=== PATIENT | male | born 1960 | race Caucasian/White ===

== ENCOUNTER 2024-09-23 23:52 | Inpatient (IN) | payer OTHER, SELFPAY ==
[2024-09-23] VITALS (14 sets, daily range): BP systolic 95–143; BP diastolic 61–107; BMI 24.8
--- NOTE | 2024-09-23 20:55 | ED.GENMED ---
History of Present Illness
General
Chief Complaint: DVT/Possible Blood Clot
Time Seen by Provider: 09/23/24 20:17
History of Present Illness
History of Present Illness:
Patient presents to the emergency department with left leg pain. He has a history of vascular disease with coronary artery disease with 2 stents as well as peripheral arterial disease with a left iliac stent in the past. He states he was sitting
outside in his yard and when he went to stand up he felt a severe pain in the left calf. He states it felt like a cramp but was more severe and felt slightly different. Pain is better at this time. Denies numbness or tingling or weakness in the
leg
Past History
Past History
ED Past Medical History: CAD, CVA, HTN, Hypercholesterolemia and Other (Headaches)
ED Past Surgical History: Cardiac (AICD, stents X 2) and Other (Stent Left leg)
Social History
Tobacco: Smoker
Alcohol: Daily (Casey hard lemonade 1)
Personal:
Living: with family
Phy Exam
Physical Exam
Physical Exam:
General: No acute distress
Head: NCAT
Neck, Normal in appearance, no swelling
Respiratory: No Respiratory distress
Abdomen: No distension
Ext: The legs are normal in color. The left is slightly cooler than the right. There are no palpable pulses in the left foot. There are palpable pulses throughout the right lower extremity. There is a dopplerable posterior tibial pulse on the
left. Motor and sensation is intact throughout.
Neuro: MISHRA, AOx4
Psych: Normal affect
Skin: Normal color
Course
Orders/Labs/Results
Orders:
Orders
09/23/24 19:32
Electrocardiogram (*1) Urgent
Reason for Study: Bradycardia / Tachycardia
EKG- Treatment ONCE
09/23/24 19:33
Periph Venous Lwr Ext Left US [US Periph Venous LOWER Ext LT] Urgent
Comment:
Reason For Exam: LEFT CALF PAIN
09/23/24 21:00
CT Abd Aorta Angio W/ Run Off Urgent
Comment:
Reason For Exam: concern for LLE ischemia
09/23/24 21:06
Complete Blood Count/With Diff Urgent
Comprehensive Metabolic Panel Urgent
Lactate Level [Lactic Acid] Urgent
PTT Urgent
Prothrombin Time Urgent
09/23/24 21:23
Heparin 5,700 units IV NOW STA
Notify MD As Directed
Notify physician if: Call provider for further orders if PTT is greater than or equal to 200 per heparin
infusion protocol.
Nursing to Place Non Medication Order As Directed
Physician Order: PTT 6 hours after initial start of Heparin infusion
Above order entered?: Yes
09/23/24 21:30
Heparin 93544 Units/250 ml 25,000 units in 250 ml IV PER PROTOCOL
Weight to be used for heparin protocol in kilograms (kg):: 71.8
Protocol:: DVT/PE
PTT Goal Range to be used:: PTT 73 to 111 seconds
Order type:: Initial
INITIAL Infusion Dose (UNITS/KG/hr) & then follow protocol:: 18 units/kg/hr
Infusion Dose in UNITS/hr & then follow protocol (UNITS/hr):: 1,300
INFUSION RATE in mL/hr & then follow protocol (mL/hr):: 13
For DVT/PE algorithm, re-bolus for low PTT?: No
PTT less than or equal to 64 seconds:: No Re-bolus. Increase by 300 units/hr (+ 3mL/hr)
PTT 64.1 to 72.9 seconds:: No Re-bolus. Increase by 100 units/hr (+ 1mL/hr)
PTT 73 to 111 seconds:: Target Range. No change in rate.
PTT 111.1 to 130.9 seconds:: Decrease rate by 100 units/hr (- 1 mL/hr)
PTT 131 to 199.9 seconds:: HOLD for 1 hr. Then decrease by 200 units/hr (- 2mL/hr)
PTT greater than or equal to 200 seconds:: HOLD for 2 hrs & Notify Provider. Then decrease by 300 units/hr
(- 3mL/hr)
Lab follow-up:: Each change, PTT q6h until 2 consecutive are therapeutic. Then
PTT daily.
09/24/24 04:00
PTT Urgent
Abnormal Lab Results
09/23/24
21:06
WBC 12.6 H 10^3/uL
(4.8-10.8)
RBC 4.55 L 10^6/uL
(4.70-6.10)
MCV 96.5 H fL
(80.0-94.0)
MCH 33.4 H pg
(27.0-31.0)
Absolute Neuts (auto) 7.4 H 10^3/uL
(1.4-6.5)
Absolute Lymphs (auto) 3.7 H 10^3/uL
(1.2-3.4)
Absolute Monos (auto) 1.2 H 10^3/uL
(0.1-0.6)
09/23/24 21:06
09/23/24 21:06
Vital Signs
Initial and Last Documented VS:
Initial Vital Signs
Temp Pulse Resp BP Pulse Ox
99.4 F 45 18 143/107 99
09/23/24 19:29 09/23/24 19:29 09/23/24 19:29 09/23/24 19:29 09/23/24 19:29
Last Documented Vital Signs
Temp Pulse Resp BP Pulse Ox
99.4 F 66 16 114/70 95
09/23/24 19:29 09/23/24 22:00 09/23/24 22:00 09/23/24 22:00 09/23/24 22:00
*Pulse Oximetry
SaO2: 99
Oxygen Mode of Delivery: Room air
Patient hypoxic: no
*Critical Care Note
Total Time (30-74mins, 75-104mins- exclusive of procedures): Not Applicable
comment:
35 minutes of critical care time
ED Attending Note
ED Attending Note
ED Attending Note:
Symptoms have resolved while at rest. Given his vascular exam there is concern for significant flow limitations in the left lower extremity. Will start on heparin drip, obtain CT angio with runoff. I consulted vascular surgery on-call Dr. Peñaloza who
agrees with plan
CTA showing Extensive atherosclerotic disease with complete occlusion of the left popliteal artery which demonstrates short segment focal reconstitution. There is apparent 2.2 cm outpouching along the left popliteal artery at the level of the knee
favored to represent thrombosed aneurysm. Discussed with Dr. Peñaloza. Recommends NPO at midnight, admission, possible intervention in the AM
-
Portions of this chart may have been created with voice recognition software.� Occasional wrong word or��sound alike� substitutions may have occurred due to the inherent limitations of voice recognition software.
Discharge Plan
Departure
Prescriptions:
No Action
aspirin 325 MG tablet
325 mg PO HS
lisinopril 10 mg tablet
10 mg PO HS
rosuvastatin 20 mg tablet
20 mg PO HS
metoprolol tartrate 25 mg tablet
12.5 mg PO BID
Rx Instructions:
resumed
Praluent Pen 75 mg/mL pen injector
75 mg SC Q2W
Referrals:
Michael Schofield MD [Family Provider, Family Practice]
Interventions
Interventions:
*Risk Screen - Suicide Last Done: 09/23/24 19:29
*General Assessment Last Done: 09/23/24 19:29
*Neglect/Abuse Screening Last Done: 09/23/24 19:29
*ED- Fall Risk Assessment Last Done: 09/23/24 19:29
*ED COVID-19 Vaccine History Last Done: 09/23/24 19:29
ED- Cardiac Assessment Last Done: 09/23/24 21:00
ED- Pulmonary Assessment Last Done: 09/23/24 21:00
ED-Peripheral Vascular Assessment Last Done: 09/23/24 21:00
ED-Skin Assessment Last Done: 09/23/24 21:00
Discharge Date and Time
Print Language: ARMENIAN
[2024-09-23 21:19] LABS: Hematocrit 43.9 % (39.0-52.0); Hemoglobin 15.2 g/dL (13.0-18.0); Mean Corp Hgb Conc. 34.6 g/dL (33.0-37.0); Mean Corpuscular Volume 96.5 fL (80.0-94.0); Nucleated Red Blood Cells % 0 % (-); Platelet Count 270 10^3/uL (130-400); Red Cell Dist. Width 13.2 % (11.5-14.5)
[2024-09-23 21:27] LABS: INR 1.00; PT 13.5 Sec (11.4-14.6)
[2024-09-23 21:28] LABS: APTT 23.5 Sec (23.4-35.0)
[2024-09-23 21:47] LABS: ALT (SGPT) 23 U/L (0-50); AST (SGOT) 28 U/L (17-59); Albumin 4.6 g/dl (3.5-5.0); Alkaline Phosphatase 54 U/L (38-126); Blood Urea Nitrogen 17 mg/dl (9-20); Calcium 10.1 mg/dl (8.4-10.2); Carbon Dioxide 27 mmol/L (22-30); Chloride 106 mmol/L (98-107); Estimated Creatinine Clearance 68 ml/min; Glucose 98 mg/dl (70-99); Potassium 4.8 mmol/L (3.5-5.1); Sodium 140 mmol/L (135-145); Total Protein 7.3 g/dl (6.3-8.2); eGFR > 60.00
[2024-09-23] MEDS: HEPARIN 5700 UNITS IV (22:01)
[2024-09-23] MEDS: HEPARIN 25000 UNITS/250 ML IV (22:02)
--- NOTE | 2024-09-23 23:21 | HPS.HSE ---
Family Physician
-
Family Physician: Michael Schofield
Chief Complaint
-
leg pain
History of Present Illness
64 man with left leg pain. He has a history of severe vascular disease, coronary artery disease with 2 stents, as well as peripheral arterial disease with a left iliac stent. He states he was sitting and then when he went to stand up he felt a
severe pain in the left calf. It felt like a cramp but was more severe and felt slightly different. Pain is better at the time of my interview, he was on a heparin gtt. Denies numbness or tingling or weakness in the leg. He was hungry and not in
distress.
Medical History
Past Medical History
Past Medical History: Reports Other
Additional Past Medical History:
CAD,
CVA,
essential HTN,
Hypercholesterolemia
Headaches
AICD, stents X 2
Stent Left leg
Chronic Ischemic Heart Dis
TIA (2008)
Colon polyps
Incarcerated left scrotal hernia surgery
Past Surgical History: Reports Other
Additional Past Surgical History:
See above
Social History
Tobacco: Smoker
Alcohol: Daily
Drug: None
Personal:
Living: With Family
Family History
Family History: Not pertinent
Allergies / Home Medications
Allergies reflects when Allergies were last updated in [employer].
Home Medications with original date entered in [employer]
Allergy/Medication List:
Allergies
Allergy/AdvReac Type Severity Reaction Status Date / Time
No Known Allergies Allergy Verified 09/23/24 19:28
Home Medications
aspirin 325 mg tablet 325 mg PO HS 11/26/08
alirocumab 75 mg/mL subcutaneous pen injector (Praluent Pen) 75 mg SC Q2W 05/21/22
lisinopril 10 mg tablet 10 mg PO HS 05/21/22
metoprolol tartrate 25 mg tablet 12.5 mg PO BID 05/21/22
Held on 05/26/22. Instructions: Resume on 06/20/22. Hold until seing by cardiology
rosuvastatin 20 mg tablet 20 mg PO HS 05/21/22
Review of Systems
-
History Source: Patient
A 12 point ROS was completed and negative except as noted: Yes
Musculoskeletal: Reports Muscle Pain
Physical Exam
Vital Signs
Vital Signs
Temp Pulse Resp BP Pulse Ox
99.4 F 57 25 106/81 94
09/23/24 19:29 09/23/24 23:10 09/23/24 23:10 09/23/24 23:10 09/23/24 23:10
Physical Exam
General: Well Developed, Well Nourished, No Apparent Distress, Comfortable and Conversant
HEENT: No Ptosis, Nose Appears Normal and Ears Appear Normal
Respiratory: Clear
Cardiac: S1/S2 and Regular Rhythm
GI: Soft, Non Tender and Non Distended
Musculoskeletal: No Clubbing, No Cyanosis and No Edema
Skin: Warm and Dry
Neuro: Awake, Alert, Oriented and AO x 3
Psych: Calm
Laboratory Results
-
09/23/24 21:06
09/23/24 21:06
Laboratory Results
PT 13.5 Sec (11.4-14.6) 09/23/24 21:06
INR 1.00 09/23/24 21:06
APTT 23.5 Sec (23.4-35.0) 09/23/24 21:06
Lactic Acid 0.7 mmol/L (0.7-2.0) 09/23/24 21:06
Total Bilirubin 0.2 mg/dl (0.2-1.3) 09/23/24 21:06
AST 28 U/L (17-59) 09/23/24 21:06
ALT 23 U/L (0-50) 09/23/24 21:06
Alkaline Phosphatase 54 U/L (38-126) 09/23/24 21:06
Data Reviewed
-
Lab Data: Labs Reviewed by me
Impression/Plan
-
IMPRESSION:
64 man with vasculopathy, current smoker presents with leg pain and the following:
There is dilation of the infrarenal abdominal aorta measuring 3.0 cm consistent with aneurysm.
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
There is apparent 2.2 cm outpouching along the left popliteal artery at the level of the knee favored to represent thrombosed aneurysm.
No sonographic evidence for LEFT lower extremity deep venous thrombosis.
ECG:
SINUS RHYTHM WITH FREQUENT PREMATURE VENTRICULAR COMPLEXES
INFERIOR INFARCT , AGE UNDETERMINED
ABNORMAL ECG
WHEN COMPARED WITH ECG OF 26-May-2022 14:45,
PREMATURE VENTRICULAR COMPLEXES ARE NOW PRESENT
WBC 12.6
PLAN:
1. Leg pain, likely from occlusion of the popliteal artery
to OR with vascular surgeon in AM
NPO after midnight
Heparin gtt in meantime
Pain control as needed
2. Abnormal ECG with h/o CAD
Telemetry overnight
Check troponins
3. Smoking - patient does not want nicotine replacement
4. WBC of 12.6 - likely stress reaction, and reaction to thrombosed aneurism
Trend WBC
If not resolving, fermin culture to look for source
Code: Full
Heparin gtt for DVTp
[2024-09-24] VITALS (27 sets, daily range): BP systolic 92–125; BP diastolic 53–83; BMI 25.1; BMI 24.9
--- NOTE | 2024-09-24 00:10 | EDRN ---
Patient ambulated to the restroom and back in bed resting comfortably
--- NOTE | 2024-09-24 02:00 | PTCARENOTE ---
Pt 64 y/o M arrived from ED at 01:14 dx LLE Arterial Occlusion. 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
showed SB, old infarct, with PVCs. Pt on a Heparin Drip initiated at 13mL/hr, PTT at 04:00, Q6 until therapeutic x 2 then daily. Troponin I Q3 x 3. Pt AOx3, NPO for possible surgery. denies pain at this time, bed in a low position, call light in
reach, care on going.
[2024-09-24 03:17] LABS: Troponin I < 0.012 ng/ml
[2024-09-24 04:32] LABS: APTT 99.6 Sec (23.4-35.0)
[2024-09-24 05:31] LABS: Hematocrit 41.7 % (39.0-52.0); Hemoglobin 14.2 g/dL (13.0-18.0); Mean Corp Hgb Conc. 34.1 g/dL (33.0-37.0); Mean Corpuscular Volume 96.1 fL (80.0-94.0); Platelet Count 250 10^3/uL (130-400); Red Cell Dist. Width 13.2 % (11.5-14.5)
[2024-09-24 06:07] LABS: Troponin I 0.013 ng/ml
[2024-09-24 06:28] LABS: Blood Urea Nitrogen 16 mg/dl (9-20); Calcium 8.6 mg/dl (8.4-10.2); Carbon Dioxide 24 mmol/L (22-30); Chloride 112 mmol/L (98-107); Estimated Creatinine Clearance 85 ml/min; Glucose 80 mg/dl (70-99); Potassium 3.9 mmol/L (3.5-5.1); Sodium 140 mmol/L (135-145); eGFR > 60.00
--- NOTE | 2024-09-24 07:41 | W.PN.UPDATE ---
Update Note
Progress Note Update
Seen and examined with [employer]'s. Full consultation to follow. 64-year-old male who presented to the emergency room last evening after he was gardening yesterday and he was squatting for quite some time and when he got up he had severe left calf pain.
You could barely walk initially. He notes that he took 4 aspirins and slowly the pain started relieving. Then he was feeling much better but when he would walk i.e. walk the dog he was having calf pain. Therefore he presented the emergency room.
Patient notes to me that he has no pain currently. No pain in his foot or calf. However he has not been walking since he been here. He does note some sensory differences between the left and the right foot but he is able to feel nonetheless. No
weakness.
Cardiovascular risk factors includes coronary artery disease status post stents, extensive tobacco use actively.
He also has a family history of abdominal aortic aneurysm (father had abdominal aortic aneurysm and succumbed to it).
On exam/ He is awake and alert. NAD. Head is normocephalic and atraumatic. Eyes are anicteric. Neck is soft without jugular venous distention. Breathing is unlabored. Abdomen is soft, nondistended, nontender. Palpable bilateral femoral
pulses. I difficulty palpating popliteal pulses bilaterally, but on the right side I was able to palpate a 1+ DP pulse. Nonpalpable on the left. The left foot is fairly pink with reasonable/brisk capillary refill at the toes. However it is
slightly cooler than the right foot. Motor function is fully intact. Sensory is intact as well, but patient notes dulling of his sensation slightly.
CT angiogram reviewed (had been called by ER and recommended CT angiogram). Demonstrates atherosclerotic abdominal aorta with some plaque irregularities, but no stenosis that is significant. He does have a small distal abdominal aortic aneurysm
measuring 3 cm. Left common iliac artery stent is patent. Patent femoral bifurcation with possible mild very proximal/origin SFA stenosis. Throughout the remainder of the SFA there is heavy plaque disease on the left side with areas of severe
stenosis and bulky plaque near occlusion and then it completely occludes at the distal SFA/popliteal transition. 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 This measures approximately 2 cm in diameter. He has
calcified runoff vessels. But it is difficult to tell any opacity/filling of these vessels. On the delayed imaging studies it does appear that his PT may be patent.
Plan/ Acute limb ischemia, [place] 2A left lower extremity with thrombosed popliteal artery aneurysm. Discussed with patient that would recommend at this point revascularization. He has extensive plaque disease in his SFA. Discussed with him
plan left lower extremity arteriogram today. If can identify and confirm a distal target, likely can proceed with a bypass at that time. If not, may require thrombolysis with catheter in place to dissolve the clot and identify an outflow target.
I went through with him and he has no contraindications to thrombolysis (no intracranial aneurysm/head bleeds, no GI bleeds, no bleeding issues, no recent major surgery). Discussed all with him. He understands all wishes to proceed. Plan
ultrasound vein mapping this morning and OR later this morning.
[2024-09-24] MEDS: LOPRESSOR PO ×2 (07:49→22:31)
--- NOTE | 2024-09-24 08:13 | CON.VAS ---
Consultation
Consultation Request
Date/Time Consultation Performed: 09/24/24 7:30am
Performing Provider: Jh
Reason for Consultation: Thrombosed left popliteal artery aneurysm
Medical History
-
Chief Complaint: LLE pain/cramping
History of Present Illness:
64-year-old male with PMH significant for HTN, CAD/FL/AICD, hypercholesterolemia, left iliac stent who presented to the emergency room last evening after he was gardening yesterday and he was squatting for quite some time and when he got up he had
severe left calf pain. You could barely walk initially. He notes that he took 4 aspirins and slowly the pain started relieving. Then he was feeling much better but when he would walk i.e. walk the dog he was having calf pain. Therefore he
presented the emergency room. Patient notes to me that he has no pain currently. No pain in his foot or calf. However he has not been walking since he been here. He does note some sensory differences between the left and the right foot but he is
able to feel nonetheless. No weakness.
Cardiovascular risk factors includes coronary artery disease status post stents, extensive tobacco use actively.
He also has a family history of abdominal aortic aneurysm (father had abdominal aortic aneurysm and succumbed to it).
On exam/ He is awake and alert. NAD. Head is normocephalic and atraumatic. Eyes are anicteric. Neck is soft without jugular venous distention. Breathing is unlabored. Abdomen is soft, nondistended, nontender. Palpable bilateral femoral
pulses. I difficulty palpating popliteal pulses bilaterally, but on the right side I was able to palpate a 1+ DP pulse. Nonpalpable on the left. The left foot is fairly pink with reasonable/brisk capillary refill at the toes. However it is
slightly cooler than the right foot. Motor function is fully intact. Sensory is intact as well, but patient notes dulling of his sensation slightly.
CT angiogram reviewed (had been called by ER and recommended CT angiogram). Demonstrates atherosclerotic abdominal aorta with some plaque irregularities, but no stenosis that is significant. He does have a small distal abdominal aortic aneurysm
measuring 3 cm. Left common iliac artery stent is patent. Patent femoral bifurcation with possible mild very proximal/origin SFA stenosis. Throughout the remainder of the SFA there is heavy plaque disease on the left side with areas of severe
stenosis and bulky plaque near occlusion and then it completely occludes at the distal SFA/popliteal transition. 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 This measures approximately 2 cm in diameter. He has
calcified runoff vessels. But it is difficult to tell any opacity/filling of these vessels. On the delayed imaging studies it does appear that his PT may be patent.
Past Medical History
Past Medical History: CAD, CVA (TIA), HTN, Hypercholesterolemia, [place] and Other (headaches)
Past Surgical History: Cardiac (AICD, stenting) and Other (Stent iliac leg, Incarcerated left scrotal hernia surgery )
Social History
Tobacco: Smoker
Alcohol: Daily
Drug: None
Personal:
Living: With Family
Family History
Family History: Other (Father- AAA rupture)
Allergies / Home Medications
Allergy/AdvReac Type Severity Reaction Status Date / Time
No Known Allergies Allergy Verified 09/23/24 19:28
�Medication �Instructions �Recorded �Confirmed �Type
aspirin 325 mg tablet 325 mg PO HS 11/26/08 09/23/24 History
alirocumab 75 mg/mL subcutaneous 75 mg SC Q2W 05/21/22 09/23/24 History
pen injector (Praluent Pen)
lisinopril 10 mg tablet 10 mg PO HS 05/21/22 09/23/24 History
metoprolol tartrate 25 mg tablet 12.5 mg PO BID 05/21/22 09/23/24 History
Held on 05/26/22.
Instructions: Resume on
06/20/22. Hold until seing by
cardiology
rosuvastatin 20 mg tablet 20 mg PO HS 05/21/22 09/23/24 History
Review of Systems
-
History Source: Patient
All other systems: Negative unless noted
Constitutional: Reports No Symptoms
EENT: Reports No Symptoms
Respiratory: Reports No Symptoms
Cardiac: Reports No Symptoms
Vascular: Reports Leg Pain / Claudication
Abdomen/GI: Reports No Symptoms
: Reports No Symptoms
Musculoskeletal: Reports Muscle Pain
Skin: Reports No Symptoms
Neurological: Reports No Symptoms
Endocrine: Reports No Symptoms
Physical Exam
Vital Signs
Temp Pulse Resp BP Pulse Ox
97.7 F 55 16 125/76 97
09/24/24 07:25 09/24/24 07:49 09/24/24 07:25 09/24/24 07:25 09/24/24 07:25
Lab Results
09/24/24 05:26
09/24/24 05:26
Troponin I Cancelled 09/24/24 20:00
Physical Exam
General: No Apparent Distress
HEENT: Normocephalic and Atraumatic
Respiratory: Non Labored Respirations
Cardiac: Negative JVD
GI: Soft and Non Tender
Musculoskeletal: No Clubbing, No Cyanosis and No Edema
Skin: Warm and Other (left foot slightly cooler then right)
Neuro: Awake, Alert and Oriented
Psych: Calm
Pulses: Left Dorsalis Pedis: Doppler (no signal), Right Dorsalis Pedis: +1, Left Posterior Tibial: Doppler (no signal) and Right Posterior Tibial: +1
Assessment / Plan
-
Plan/ Acute limb ischemia, [place] 2A left lower extremity with thrombosed popliteal artery aneurysm. Discussed with patient that would recommend at this point revascularization. He has extensive plaque disease in his SFA. Discussed with him
plan left lower extremity arteriogram today. If can identify and confirm a distal target, likely can proceed with a bypass at that time. If not, may require thrombolysis with catheter in place to dissolve the clot and identify an outflow target.
I went through with him and he has no contraindications to thrombolysis (no intracranial aneurysm/head bleeds, no GI bleeds, no bleeding issues, no recent major surgery). Discussed all with him. He understands all wishes to proceed.
-Plan ultrasound vein mapping this morning and OR later this morning.
Data Reviewed
-
CT Scan: Discussed with Patient
Labs: Labs Reviewed by me
--- NOTE | 2024-09-24 08:47 | W.PN.HOSP.TC ---
Today's Communication/Plan
-
OR today
Assessment / Plan
Assessment / Plan
Impression:
64 man with left leg pain. He has a history of severe vascular disease, coronary artery disease with 2 stents, as well as peripheral arterial disease with a left iliac stent. He states he was sitting and then when he went to stand up he felt a
severe pain in the left calf. It felt like a cramp but was more severe and felt slightly different.
Ct angiogram shows:
IMPRESSION:
1. There is dilation of the infrarenal abdominal aorta measuring 3.0 cm consistent with aneurysm.
2. 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 There is apparent 2.2 cm outpouching along the left popliteal artery at the level of the knee favored to
represent thrombosed aneurysm.
Seen by vascular surgery and plan for OR.
Assessment/plan:
Acute limb ischemia:
to OR with vascular surgeon tuesday.
NPO
Heparin gtt in meantime
Pain control as needed
Abnormal ECG with h/o CAD
Telemetry overnight
negative troponins
currently everyday Smoking -
patient does not want nicotine replacement
Discussed importance of smoking
Reactive leukocytosis-
Resolved
CODE STATUS: Full code
DVT prophylaxis: Heparin drip
Diet: NPO
Disposition: OR today
Total time spent on today's encounter was 65 minutes which included time spent in counseling the patient/family regarding diagnosis and treatment plan as listed above, goals of care, and symptom management. Case was discussed with nursing staff,
specialists, and care coordinators/case management. All labs and imaging personally reviewed by me. Remainder the time spent in detailed review of previous records, lab data, imaging, and other medical provider documentation.
Anticipated Discharge: > 48 hours
Subjective/Interval History
-
Date of Service: September 24, 2024
Patient seen and examined at bedside, denies any chest pain or shortness of breath, no abdominal pain, no nausea, no vomiting, no diarrhea or constipation.
Objective Data
-
Labs:
Laboratory Results
09/23/24 09/24/24 09/24/24
21:06 03:58 05:26
WBC 12.6 H 10.4
Hgb 15.2 14.2
Hct 43.9 41.7
Plt Count 270 250
PT 13.5
INR 1.00
APTT 23.5 99.6 H
Sodium 140 140
Potassium 4.8 3.9
Chloride 106 112 H
Carbon Dioxide 27 24
BUN 17 16
Creatinine 1.0 0.8
Glucose 98 80
Calcium 10.1 8.6 D
Total Bilirubin 0.2
AST 28
ALT 23
Alkaline Phosphatase 54
09/24/24
10:00
WBC
Hgb
Hct
Plt Count
PT
INR
APTT Pending
Sodium
Potassium
Chloride
Carbon Dioxide
BUN
Creatinine
Glucose
Calcium
Total Bilirubin
AST
ALT
Alkaline Phosphatase
Vital Signs:
Vital Signs
Temp Pulse Resp BP Pulse Ox
97.7 F 55 16 125/76 97
09/24/24 07:25 09/24/24 07:49 09/24/24 07:25 09/24/24 07:25 09/24/24 07:25
I&O
09/23/24 09/24/24 09/25/24
06:59 06:59 06:59
Output Total 200 / 200
Balance -200 / -200
Physical Exam
-
General: Well Developed, Well Nourished, No Apparent Distress and Comfortable
HEENT: Normocephalic, Atraumatic, Moist Mucous Membranes, No Ptosis, PERRLA and Nose Appears Normal
Respiratory: Clear to Auscultation and Non Labored Respirations
Cardiac: Regular Rhythm and S1/S2
Breast: Deferred by me
GI: Soft, Nontender, Nondistended and Normal Bowel Sounds
Genito-urinary: No Costovertebral Tender
Musculoskeletal: No Clubbing, No Cyanosis and No Edema
Skin: Warm
Neuro: Awake, Alert, Oriented, AO x 3 and No Motor Deficits
Psych: Calm
Data Reviewed
-
Diagnostic Radiology: Image personally visualized and interpreted and Report Reviewed by me
CT Scan: Image personally visualized and interpreted and Report Reviewed by me
Ultrasound: Image personally visualized and interpreted and Report Reviewed by me
MRI: Image personally visualized and interpreted and Report Reviewed by me
Medical Tests (Nuc Med, Echo etc): Image personally visualized and interpreted and Report Reviewed by me
Labs: Labs Reviewed by me
Old Records: Reviewed
[2024-09-24 09:03] LABS: Glycohemoglobin (HgbA1c) 6.1 % (4.0-5.6)
[2024-09-24 09:26] LABS: Troponin I < 0.012 ng/ml
[2024-09-24 10:03] LABS: APTT 101.1 Sec (23.4-35.0)
--- NOTE | 2024-09-24 10:34 | CM ---
Addendum entered by Precious Dyer RN 09/24/24 10:36:
Advanced Directive packet provided to the patient.
Original Note:
Reviewed the chart notes and spoke with the patient at the bedside. The patient is scheduled for OR today. Patient resides with spouse in a one story home with no steps to enter. Patient reports no DME/VN/SNF in the past. The patient confirmed
his pharmacy of choice is [facility] [address] [place]. CM continues to be available to patient/family and is monitoring medical plan for needs at discharge.
Plan: Discharge plans will depend on the patient's progress at time of discharge.
[2024-09-24] MEDS: BACTROBAN 2% OINTMENT 1 APPLIC NASAL (12:07)
[2024-09-24] MEDS: PERIDEX 0.12% ORAL RINSE 15 ML PO (12:08)
--- NOTE | 2024-09-24 12:36 | W.PN.UPDATE ---
Update Note
Progress Note Update
Discussed with patient plan for arteriogram to identify distal target. Then plan bypass. Vein is reasonable through the thigh, but then becomes little small. Hopefully enough usable conduit, but alternatively if need to displace could use
contralateral thigh pain. Discussed this all with him. Discussed generally technical aspects of procedure. Discussed risks including but not limited to bleeding, infections, persistent limb threat, need for recurrent interventions, bypass graft
failure/stenoses requiring the interventions down the line. I also discussed heightened risk of bypass graft failure in the setting of continued tobacco use (3 fold). Therefore discussed strongly need for smoking cessation. He understands all
wishes to proceed.
--- NOTE | 2024-09-24 12:41 | PTCARENOTE ---
second set of CHG wipes done, patient transferred to labor relations manager, report given on the phone. hep gtt is infusing at 1300 units. ancef IV was tubed up to labor relations manager
--- NOTE | 2024-09-24 17:27 | W.SUR.POST ---
Surgical Immediate Post Op
Note
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
Post Op Diagnosis: Same
Procedure Performed: Left lower extremity arteriogram, left lower extremity SFA into below-knee popliteal bypass with greater saphenous vein graft
Primary Surgeon: Jh
Junior Account Manager: Judie REY
Anesthesia: General
Estimated Blood Loss: 30 cc
Fluids: See to see flowsheet
Drains/Shunts: None
Specimens/Cultures: None
Doppler/Duplex/Angio (Y/N): Y
Complications: None
Operative Findings: Palpable PT and DP pulses at completion
--- NOTE | 2024-09-24 17:41 | OR.RPT ---
Operative Report
Operative Report
PROCEDURE DATE: 09/24/2024
Preoperative diagnosis:
1. Acute limb ischemia left lower extremity.
2. Acute thrombosis left popliteal artery aneurysm.
3. Severe peripheral arterial disease.
Postoperative diagnosis: Same
Procedure:
1. Duplex assisted cannulation of right common femoral artery.
2. Aortogram, pelvic angiogram and left lower extremity diagnostic angiogram.
3. Left proximal superficial femoral artery to posterior tibial artery bypass with ipsilateral nonreversed greater saphenous vein conduit.
Surgeon: Jh
Pharmacy Manager: AARON Dimas, required for all aspects of procedure including assistance with traction/countertraction, following a suture line, assistance with closure.
Complications: None
Anesthesia: General
Fluoroscopy:
Time: 4.8 minutes.
Dose: 26 mGy.
DAP: 6.77.
Indications for procedure:
Acute limb ischemia Sandy 2A classification left lower extremity. Imaging demonstrated severe peripheral arterial disease with extensive plaque disease (history of left iliac stent that was patent and extensive atherosclerosis through the
iliac system as well as the SFA with severe stenoses in the SFA). Imaging also demonstrated popliteal aneurysm on the left side that was occluded. Difficult to ascertain runoff on CT scan imaging but it appeared that there may have been a
posterior tibial artery reconstituted on delayed phase imaging. Risk/benefits/alternatives of revascularization were fully discussed with the patient. He understood all wished proceed.
Description of procedure:
Patient was identified brought to the operating room placed on the table in supine position. After the adequate administration of anesthesia he was prepped and draped in the standard surgical fashion. A standard preoperative timeout was undertaken
and everybody was in agreement the plan. Under direct duplex ultrasound guidance the right common femoral artery was cannulated with a micropuncture kit, and then a 5 [place] sheath was advanced over a 0.35 inch wire. A separate set catheter was
advanced into the abdominal aorta. Aortogram and pelvic angiogram demonstrated patent distal infrarenal aorta and bilateral common and external iliac arteries. There was extensive eccentric atherosclerotic plaque, but no significant stenoses in
these vessels, and the left-sided common iliac stent was nicely patent with no stenosis. At this point I selectively cannulated the left common femoral artery using a flopping of hydrophilic wire and then advanced my catheter. Left lower extremity
arteriogram demonstrated patent left common femoral and profunda femoris artery with no obvious stenoses. Left superficial femoral artery was patent with mild possible stenosis proximally or distal luminal irregularity just beyond the origin, it
beyond here it was patent for a few centimeters (approximately 6 or 7 cm) after which there was heavy bulky plaque. There was slight flow through some of these heavy plaque areas but very limited. Distal SFA was then occluded. Popliteal artery
was occluded. On delayed imaging with concentrated contrast, I could see a peroneal artery light up below the knee. And then when I carefully looked at an oblique image was delayed imaging I could see a faint outline of the posterior tibial artery
with light up. This confirmed to me that there was a target vessel below the knee. I therefore then elected to proceed with bypass. Wires and catheters were withdrawn. The sheath in the right groin was withdrawn and manual pressure was applied
to the puncture site. Hemostasis was fully achieved.
At this point the left lower extremity was prepped and draped in the standard surgical fashion. A longitudinal incision was made in the left groin extending to the proximal thigh that was carried through the skin subcutaneous tissue with the
electrocautery. Any lymphatic or crossing vein type vessels were ligated between silk ties and divided. Identified the common femoral artery as it emerged from underneath the inguinal ligament. It was noted to be soft throughout its course.
There was some mild posterior plaque. I dissected the common femoral to the bifurcation. The SFA was then dissected for approximately 6 cm and was noted to be pulsatile through that entire length. There was some area of plaque, but when I pinched
the artery between my hand there was no definitive severe stenosis. This correlated to my angiographic findings as well as CT angiogram findings. Given concern about vein conduit, I felt therefore that we could originate the bypass from the SFA a
few centimeters beyond the origin in order to save some vein length. Circumferential careful dissection was undertaken of the SFA, profunda origin, and another large branch that emanated at the profunda origin. These were all controlled with
Vesseloops which were not tightened.
Now I turned my attention to below the knee. A longitudinal incision was made in the mid calf about 1 fingerbreadth inferior to the tibia. This was carried through skin subcutaneous tissue with the electrocautery. Identified the continuation of
the greater saphenous vein and took great care to avoid any injury to this carefully dissecting it and mobilizing it inferiorly. Once I had moved the vein out of the way, I then incised through the crural fascia using electrocautery. Next the
soleus muscle was divided essentially off the tibia. Once I did this the deep posterior fascia was identified and incised with the electrocautery. I now entered the deep posterior compartment. The posterior tibial vein was identified initially,
and then identified the artery. I carefully dissected the artery away from the vein and surrounding structures take great care to avoid any injury to the structures while in doing so. The artery was noted to be relatively soft. I listened with a
Doppler and there was a signal/monophasic signal in the artery suggesting patency. Therefore I felt that this was a reasonable target. Careful circumferential dissection was undertaken proximally distally and a vessel loop passed around it
proximally distally. These were only single looped and no tension was applied to these.
I now turned my attention to the greater saphenous vein. I made an incision in the proximal thigh more medially where I had marked the positioning of the greater saphenous vein using an ultrasound prior to prepping and draping. This incision was
carried through the skin subcutaneous tissue and then identified the greater saphenous vein. I carefully began mobilizing it out of its bed, ligating any branches between silk ties and clips and then dividing them. I then through a series of skip
incisions mobilize the greater saphenous vein throughout the thigh and below the knee. It was not a optimal vein in the sense that it was slightly sclerotic or thickened, but it was definitely usable in a reasonable size. The vein coursed
superficially as noted on ultrasound but I carefully dissected the entirety of it. Once I got to the below the knee segment and to the arterial exposure site below the knee, the vein became very small and I felt that I could no longer mobilize it
here. I mobilized it back close to the saphenofemoral junction but just distal to the confluence of an additional branch. Here I ligated it with a silk suture ligature and then divided it. I then divided it distally below the knee with a silk tie
and a clip ligating it and then dividing it. I now prepared the vein. I distended under heparinized saline. It distended well. But again it was noted to be somewhat sclerotic but it actually distended very reasonably well. At this point I was
satisfied. I now used a Peg tunneler to create a subsartorial tunnel between the 2 arterial exposure sites (proximal SFA and posterior tibial artery). I now gave the patient 5008 symmetries heparin. Once this had circulated for 3 minutes I
then clamped the SFA proximally and distally. I made a longitudinal arteriotomy with an 11 blade and extended using a Mcintosh scissor. There was little bit of plaque in the wall but the lumen was widely patent here. I spatulated the saphenous vein
maintaining it in a nonreversed fashion, and sewed an end-to-side anastomosis between the vein and the superficial femoral artery using a running 6-0 Prolene suture. I completed and tied down my suture line and then released my clamps on the SFA.
There is excellent pulsatile flow into the vein graft. I now used a Hanna valvulotome to carefully valvulotomize all the valves. Once I did this there is excellent pulsatile flow through the entirety of the vein graft. I now marked the anterior
surface of the graft under distention to avoid any kinking or twisting and then passed it through the tunnel. I confirmed still pulsatile flow once I passed it through the tunnel. I now placed a bulldog clamp on the vein graft. I reexposed the
posterior tibial artery. Vesseloops were now double looped and tightened gently. [place] blade was used to make an arteriotomy on the posterior tibial artery and this was extended with a Mcintosh scissor. I backbled and forward bled the artery to
make sure that there was no concern for residual thrombus. It backbled and forward bled well. The lumen was nicely patent with no evidence of thrombus. There was no significant disease in terms of plaque as well at this juncture. I therefore
then trimmed and spatulated the vein graft and sewed an end-to-side anastomosis to the posterior tibial artery using a running 7-0 Prolene suture. Prior to completing and tying down the suture line I backbled the [place] artery, and then flushed out
the graft. I then irrigated heparinized saline. I then completed and tied down my suture line. Now I released my proximal vessel loop on the posterior tibial artery as well as the bulldog clamp on the vein graft. Finally I released the outflow
vessel loop. There is now excellent pulsatile flow into the outflow. Doppler confirmed an excellent graft dependent signal. I now had an excellent phasic Doppler signal at the ankle as well as the posterior tibial artery which was also graft
dependent. And in fact I could now even palpate a posterior tibial artery pulse. At this point I was very satisfied.
All incision sites were carefully inspected. Anastomoses were carefully inspected. Hemostasis was fully achieved. Protamine was given to reverse the heparin. All sites were irrigated. Arterial exposure incision sites were closed with layers of
Vicryl suture (2-0 Vicryl followed by 3-0 Vicryl) followed by skin clips. Saphenectomy incision sites were closed with 3-0 Vicryl followed by skin clips. Dressings were applied. All sponge, needle, instrument counts were correct at the end of the
case. The patient tolerated the procedure well and was transported the recovery room in stable condition.
[2024-09-24 18:13] LABS: Hematocrit 40.5 % (39.0-52.0); Hemoglobin 14.1 g/dL (13.0-18.0); Mean Corp Hgb Conc. 34.8 g/dL (33.0-37.0); Mean Corpuscular Volume 97.4 fL (80.0-94.0); Platelet Count 246 10^3/uL (130-400); Red Cell Dist. Width 13.2 % (11.5-14.5)
[2024-09-24 18:14] LABS: INR 1.10; PT 14.5 Sec (11.4-14.6)
[2024-09-24 18:15] LABS: APTT 27.2 Sec (23.4-35.0)
[2024-09-24 18:20] LABS: Blood Urea Nitrogen 18 mg/dl (9-20); Calcium 8.5 mg/dl (8.4-10.2); Carbon Dioxide 22 mmol/L (22-30); Chloride 107 mmol/L (98-107); Estimated Creatinine Clearance 85 ml/min; Glucose 124 mg/dl (70-99); Potassium 4.7 mmol/L (3.5-5.1); Sodium 137 mmol/L (135-145); eGFR > 60.00
[2024-09-24] MEDS: NSS 1000 IV (18:35)
--- NOTE | 2024-09-24 19:00 | PTCARENOTE ---
Pt arrived to ICU at 1830 via bed, report received from Mishel DAY from PACU, S/P L lower ext arteriogram, and L fem distal bypass. R and L DP's and R and L PT's all present with doppler. Lower exts bilat warm, +sensation. L rad A-line present with +
cuff shivani. HR SB/SR with occ PVCs. NSS started at 80 ml/hr via L AC int. Port CXR done at bedside. Pt on 10L simple mask O2, lobes clear and diminished bilat, O2 agx=073%. Pt given sips of water, swallows without difficulty. Temp sensing burks
intact, draining mod amt yellow urine. R fem groin with sm puncture site, EDUCATION DEPARTMENT CHAIR, no hematoma noted. L leg with post drsg from upper leg to lower leg, intact. Very small areas circled from drainage monitoring. Report given to Edgar DAY that will be
assuming care overnight. Family to room now to visit.
[2024-09-24] MEDS: ROXICODONE 5 MG PO (20:02)
--- NOTE | 2024-09-24 20:30 | PTCARENOTE ---
Pt received start of shift, HR SB w/ PVCs. b/l DP and PT pulses present. LLE warm, sensation normal per pt. L radial a-line zeroed. NSS infusing as ordered. Pt initially 10L simple face mask until 1929. Decreased to 6L NC and weaned to RA. POX
remains >92%. Quintana draining clear yellow urine. PRN pain medication - see APR.
[2024-09-24] MEDS: CRESTOR 20 MG PO (22:32)
[2024-09-24] MEDS: ASPIRIN 325 MG PO (22:32)
[2024-09-24] MEDS: ZESTRIL 10 MG PO (22:32)
[2024-09-24] MEDS: HEPARIN 5000 UNITS SC (23:38)
[2024-09-25] VITALS (10 sets, daily range): BP systolic 90–131; BP diastolic 47–77; BMI 25.1
--- NOTE | 2024-09-25 | PTCARENOTE ---
Pt HR remaining in 50s and into 40s, PACK WORKER aware. Parameters for Lopressor placed - Lopressor held (see MAR). B/l LE pulses remain palpable. Pt continues to be in good spirits
[2024-09-25] MEDS: TYLENOL 650 MG PO ×2 (02:48→09:54)
[2024-09-25 03:10] LABS: Hematocrit 37.9 % (39.0-52.0); Hemoglobin 12.8 g/dL (13.0-18.0); Mean Corp Hgb Conc. 33.8 g/dL (33.0-37.0); Mean Corpuscular Volume 96.9 fL (80.0-94.0); Platelet Count 232 10^3/uL (130-400); Red Cell Dist. Width 13.3 % (11.5-14.5)
[2024-09-25 03:20] LABS: INR 1.16; PT 15.1 Sec (11.4-14.6)
[2024-09-25 03:21] LABS: APTT 25.6 Sec (23.4-35.0)
[2024-09-25 03:39] LABS: Blood Urea Nitrogen 18 mg/dl (9-20); Calcium 8.3 mg/dl (8.4-10.2); Carbon Dioxide 22 mmol/L (22-30); Chloride 110 mmol/L (98-107); Estimated Creatinine Clearance 85 ml/min; Glucose 97 mg/dl (70-99); Potassium 4.3 mmol/L (3.5-5.1); Sodium 137 mmol/L (135-145); eGFR > 60.00
--- NOTE | 2024-09-25 05:56 | PTCARENOTE ---
Pt reassessed, no change in assessment.
[2024-09-25] MEDS: NSS 1000 IV (06:30)
--- NOTE | 2024-09-25 08:00 | PTCARENOTE ---
pt seen by vascular surgery , ok to get oob and EZEQUIEL robles , diet increased to low cholesterol
--- NOTE | 2024-09-25 08:19 | W.PN.VS ---
Addendum entered and electronically signed by Jonatan Quintana III, MD 09/25/24 13:58:
This patient was seen and examined in collaboration with CANDIDO Puentes. I agree with the history and physical exam as well as the assessment and plan. I have the following additions:
Overall doing well early postop
Palpable PT pulse
Foot warm
Agree with plan
Signed:
Jonatan Quintana III, MD
Vascular Surgery
[facility]
Original Note:
Today's Communication / Plan
-
Patient seen and examined bedside with Dr. Jonatan Quintana III, below plan reviewed with attending.
Assessment/Plan
-
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 POD #1 aortogram, pelvic angiogram and left lower extremity diagnostic angiogram and left proximal superficial femoral artery to posterior tibial artery bypass with ipsilateral
nonreversed greater saphenous vein conduit.
Plan:
Discontinue IV fluid
Discontinue arterial line
Discontinue Quintana catheter
Continue as needed pain medications
Continue aspirin, will likely add low-dose Xarelto 2.5 mg p.o. twice daily for [facility] protocol for medical management for peripheral arterial disease tomorrow
Can get out of bed to chair today, will encourage increase ambulation and add physical therapy tomorrow
Smoking cessation education
Continue neurovascular checks and ICU level care today
Subjective Data
-
Date of Service: September 25, 2024
Patient seen and examined at bedside, reports adequate postoperative pain management. Denies any rest pain or foot pain, does endorse intermittent pain at calf but well-managed. Denies nausea, vomiting, fever, and chills.
Objective Data
-
Vital Signs
Temp Pulse Resp BP Pulse Ox
98.5 F 51 17 97/60 95
09/25/24 08:16 09/25/24 06:15 09/25/24 06:15 09/25/24 04:00 09/25/24 06:15
Intake and Output
09/24/24 09/25/24 09/26/24
06:59 06:59 06:59
Intake Total 955 / 955
Output Total 200 / 200 1070 / 1070
Balance -200 / -200 -115 / -115
Intake:
IV fluids (Total) 955 / 955
NSS 880 / 880
normosol 75 / 75
Output:
Urine, Quintana 1070 / 1070
Urine, Voided 200 / 200
Lab Results
09/25/24 02:56
09/25/24 02:56
Calcium 8.3 mg/dl (8.4-10.2) L 09/25/24 02:56
Total Bilirubin 0.2 mg/dl (0.2-1.3) 09/23/24 21:06
AST 28 U/L (17-59) 09/23/24 21:06
ALT 23 U/L (0-50) 09/23/24 21:06
Alkaline Phosphatase 54 U/L (38-126) 09/23/24 21:06
Total Protein 7.3 g/dl (6.3-8.2) 09/23/24 21:06
Albumin 4.6 g/dl (3.5-5.0) 09/23/24 21:06
Physical Exam
-
No apparent distress, resting in bed comfortably
No tachycardia
No dyspnea on room air
ABD flat, nontender, nondistended
Left lower extremity dressing dry and intact, scant to left lower extremity swelling, all compartments soft, no evidence of hematoma, left foot warm, palpable PT pulse confirmed with Doppler signal
Quintana draining clear yellow urine
[2024-09-25] MEDS: LOPRESSOR 12.5 MG PO ×2 (08:45→19:54)
[2024-09-25] MEDS: HEPARIN 5000 UNITS SC ×2 (08:45→16:57)
--- NOTE | 2024-09-25 10:48 | CON.INTV ---
Consultation
Consultation Request
Date/Time Consultation Requested: 09/26/2019
Date/Time Consultation Performed: 09/25/2024
Requesting Provider: Dr. Peñaloza
Performing Provider: Dr. Mook Elaine
Reason for Consultation: Acute left lower limb ischemia.
Medical History
-
History of Present Illness:
64-year-old man with past medical history significant for coronary artery disease, hypertension, prior CVA, prior stents, prior history of peripheral vascular disease came complaining of left leg pain. The pain started spontaneously as he was
sitting. Patient has prior history of iliac stents on the left. Heparin was started
Patient evaluated by surgery and patient was taken to the operating room when he underwent left lower extremity SFA into below the knee popliteal bypass with graded venous saphenous graft. Patient transferred to the critical care unit overnight.
Arterial line in place.
Patient states that pain on the left lower extremity has improved but still present.
Denies cough, shortness of breath or wheezing.
He quit smoking on Tuesday. Denies prior history of emphysema or COPD
Past Medical History
Past Medical History: Other ( see assessment)
Social History
Tobacco: Smoker (30+ pack year history ongoing)
Alcohol: None
Drug: None
Personal:
Living: With Family
Family History
Family History: Reviewed & Not Pertinent
Allergies / Home Medications
Allergies
Allergy/AdvReac Type Severity Reaction Status Date / Time
No Known Allergies Allergy Verified 09/23/24 19:28
Home Medications
�Medication �Instructions �Recorded �Confirmed �Last Taken �Type
aspirin 325 mg tablet 325 mg PO HS Blood Clot 11/26/08 09/23/24 05/20/22 History
Prevention/Tx
alirocumab 75 mg/mL subcutaneous 75 mg SC Q2W High Cholesterol 05/21/22 09/23/24 2 Weeks Ago History
pen injector (Praluent Pen) ~05/07/22
lisinopril 10 mg tablet 10 mg PO HS Blood Pressure 05/21/22 09/23/24 05/20/22 History
metoprolol tartrate 25 mg tablet 12.5 mg PO BID Blood Pressure 05/21/22 09/23/24 05/20/22 History
Held on 05/26/22.
Instructions: Resume on
06/20/22. Hold until seing by
cardiology
rosuvastatin 20 mg tablet 20 mg PO HS High Cholesterol 05/21/22 09/23/24 05/20/22 History
Review of Systems
-
History Source: Patient
All other systems: Negative unless noted
Vitals / Labs / Diagnostic Testing
Vital Signs
Temp Pulse Resp BP Pulse Ox
98.5 F 59 17 118/56 95
09/25/24 08:16 09/25/24 08:45 09/25/24 06:15 09/25/24 08:45 09/25/24 06:15
Lab Data
09/25/24 02:56
09/25/24 02:56
Laboratory Results
09/24/24 09/25/24
17:48 02:56
PT 14.5 15.1 H
INR 1.10 1.16
APTT 27.2 25.6
Diagnostic Testing:
Physical Exam
-
HEENT: Normocephalic
Cardiovascular: S1/S2
Respiratory: Clear and Non-Labored Respirations
GI: Soft and Non Distended
Neurology: Awake, Alert, AO x 3 and No Motor Deficits
Skin: Warm and Other (Left foot is warm. Not erythematous. Not tender to touch.)
General: Comfortable
Assessment
-
64-year-old man with past medical history noted. Came with acute left pain. Found to have acute limb ischemia. Taken to the operating room where he underwent SFA to popliteal bypass. Transferred to the critical care unit for further care.
Acute left lower extremity limb ischemia: Status post left lower extremity SFA into below-knee popliteal bypass with greater saphenous vein graft
-
Conditions present prior admission:
Coronary artery disease status post stents in the past
Prior CVA
Essential hypertension
Peripheral vascular disease status post previous iliac stent
TIA in 2008
Hypercholesterolemia
Incarcerated left scrotal hernia status postsurgery
Tobacco abuse
Assessment and plan:
Postoperative surgical intensive care unit monitoring
Supplemental oxygen as needed
Incentive spirometry
Aspiration precautions
Chest x-ray 09/24/2024: Reviewed showed no acute abnormality
-
Incision is intact.
Foot is warm
Continue with:
Neuro and vascular checks per protocol
Analgesia with narcotics: Monitor respiratory status closely
Vascular surgery following-correspondence and operative notes reviewed
Monitor blood pressure
Arterial line in place-will discontinue today.
Discontinue Quintana catheter.
Currently hemodynamically stable
Eventual restart outpatient medication
-
Follow hemoglobin-currently stable
Follow blood sugars
Insulin supplementation as needed
Smoking cessation encouraged: Patient quit smoking on Tuesday.
Denies shortness of breath
I did discuss with him possibility of lung cancer screening and he is interested. Information will be left in the chart
DVT prophylaxis-heparin subcu
Increase activity per protocol
Eventual physical therapy evaluation
Will continue with ICU hemodynamic monitoring overnight.
[2024-09-25] MEDS: ROXICODONE 5 MG PO ×2 (11:15→16:57)
--- NOTE | 2024-09-25 12:00 | W.PN.HOSP.TC ---
Today's Communication/Plan
-
Continue aspirin.
Smoking cessation.
Out of bed to chair
Assessment / Plan
Assessment / Plan
Impression:
64 man with left leg pain. He has a history of severe vascular disease, coronary artery disease with 2 stents, as well as peripheral arterial disease with a left iliac stent. He states he was sitting and then when he went to stand up he felt a
severe pain in the left calf. It felt like a cramp but was more severe and felt slightly different.
Ct angiogram shows:
IMPRESSION:
1. There is dilation of the infrarenal abdominal aorta measuring 3.0 cm consistent with aneurysm.
2. 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 There is apparent 2.2 cm outpouching along the left popliteal artery at the level of the knee favored to
represent thrombosed aneurysm.
Seen by vascular surgery and plan for OR.
09/24 s/p aortogram, pelvic angiogram and left lower extremity diagnostic angiogram and left proximal superficial femoral artery to posterior tibial artery bypass with ipsilateral nonreversed greater saphenous vein conduit
Assessment/plan:
Acute limb ischemia:
to OR with vascular surgeon tuesday morning.
NPO
Heparin gtt in meantime
Pain control as needed
09/25
Status post aortogram , pelvic angiogram and left lower extremity diagnostic angiogram and left proximal superficial femoral artery to posterior tibial artery bypass with ipsilateral nonreversed greater saphenous vein conduit.
Patient tolerated the procedure well.
Stayed overnight in ICU
Abnormal ECG with h/o CAD
Telemetry overnight
negative troponins
currently everyday Smoking -
patient does not want nicotine replacement
Discussed importance of smoking cessation
09/25
Discussed again the importance of smoking cessation
Reactive leukocytosis-
Resolved
CODE STATUS: Full code
DVT prophylaxis: Heparin
Diet: Cardiac
Disposition: Out of bed to chair
Total time spent on today's encounter was 65 minutes which included time spent in counseling the patient/family regarding diagnosis and treatment plan as listed above, goals of care, and symptom management. Case was discussed with nursing staff,
specialists, and care coordinators/case management. All labs and imaging personally reviewed by me. Remainder the time spent in detailed review of previous records, lab data, imaging, and other medical provider documentation.
Anticipated Discharge: 24 - 48 hours
Subjective/Interval History
-
Date of Service: September 25, 2024
Patient seen and examined at bedside, patient stayed in the ICU overnight, patient denies any chest pain or shortness of breath, no abdominal pain, no nausea, no vomiting, no diarrhea or constipation.
Objective Data
-
Labs:
Laboratory Results
09/25/24
02:56
WBC 14.8 H
Hgb 12.8 L
Hct 37.9 L
Plt Count 232
PT 15.1 H
INR 1.16
APTT 25.6
Sodium 137
Potassium 4.3
Chloride 110 H
Carbon Dioxide 22
BUN 18
Creatinine 0.8
Glucose 97
Calcium 8.3 L
Vital Signs:
Vital Signs
Temp Pulse Resp BP Pulse Ox
98.5 F 56 18 92/77 97
09/25/24 08:16 09/25/24 11:45 09/25/24 11:45 09/25/24 10:03 09/25/24 09:50
I&O
09/24/24 09/25/24 09/26/24
06:59 06:59 06:59
Intake Total 955 / 1035 490 / 490
Output Total 200 / 200 1070 / 1220 300 / 300
Balance -200 / -200 -115 / -185 190 / 190
Physical Exam
-
General: Well Developed, Well Nourished, No Apparent Distress and Comfortable
HEENT: Normocephalic, Atraumatic, Moist Mucous Membranes, No Ptosis, PERRLA and Nose Appears Normal
Respiratory: Clear to Auscultation and Non Labored Respirations
Cardiac: Regular Rhythm and S1/S2
Breast: Deferred by me
GI: Soft, Nontender, Nondistended and Normal Bowel Sounds
Genito-urinary: No Costovertebral Tender
Musculoskeletal: No Clubbing, No Cyanosis, No Edema and Other (Lower extremity dressing intact)
Skin: Warm
Neuro: Awake, Alert, Oriented, AO x 3 and No Motor Deficits
Psych: Calm
--- NOTE | 2024-09-25 12:10 | PTCARENOTE ---
pt oob in chair , tolerated transferer well with walker , requiring pain Meds for transfers
--- NOTE | 2024-09-25 13:45 | CM ---
POD #1: Aortogram, pelvic and LLE angiogram, L fem/tib bypass. Quintana d/cd, N/V checks, OOB/chair and encourage ambulation. Therapy eval on
09/26/24. Discharge POC: TBD. Await therapy eval and recommendations.
[2024-09-25] MEDS: ZESTRIL 10 MG PO (21:40)
[2024-09-25] MEDS: ASPIRIN 325 MG PO (21:40)
[2024-09-25] MEDS: CRESTOR 20 MG PO (21:40)
[2024-09-26] VITALS (16 sets, daily range): BP systolic 99–120; BP diastolic 53–74; PULSE 62; O2SAT 98; BMI 25.0
[2024-09-26] MEDS: HEPARIN 5000 UNITS SC ×4 (00:05→23:59)
--- NOTE | 2024-09-26 00:05 | PTCARENOTE ---
Pt receieved at 19:00, initial assessment as documented. Neurovascular checks q4h, DP and PT pulses present with doppler. Pt denies pain.
[2024-09-26 04:39] LABS: Hematocrit 37.6 % (39.0-52.0); Hemoglobin 12.8 g/dL (13.0-18.0); Mean Corp Hgb Conc. 34.0 g/dL (33.0-37.0); Mean Corpuscular Volume 96.9 fL (80.0-94.0); Platelet Count 213 10^3/uL (130-400); Red Cell Dist. Width 13.3 % (11.5-14.5)
[2024-09-26 05:03] LABS: Blood Urea Nitrogen 15 mg/dl (9-20); Calcium 8.6 mg/dl (8.4-10.2); Carbon Dioxide 24 mmol/L (22-30); Chloride 109 mmol/L (98-107); Estimated Creatinine Clearance 85 ml/min; Glucose 110 mg/dl (70-99); Potassium 4.2 mmol/L (3.5-5.1); Sodium 136 mmol/L (135-145); eGFR > 60.00
--- NOTE | 2024-09-26 05:46 | PTCARENOTE ---
Pt assessment unchanged. Safe environment maintained, call gan within reach, pt repositioning self in bed.
[2024-09-26] MEDS: LOPRESSOR PO (08:00)
--- NOTE | 2024-09-26 08:09 | W.PN.VS ---
Today's Communication / Plan
-
Seen and assessed with Dr Peñaloza
Assessment/Plan
-
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 POD #2 aortogram, pelvic angiogram and left lower extremity diagnostic angiogram and left proximal superficial femoral artery to posterior tibial artery bypass with ipsilateral
nonreversed greater saphenous vein conduit.
Plan:
Continue as needed pain medications
Continue aspirin, will likely add low-dose Xarelto 2.5 mg p.o. twice daily for [facility] protocol for medical management for peripheral arterial disease tomorrow
PT/ambulation
Smoking cessation education
CM for kothari check of xarelto
Subjective Data
-
Date of Service: September 26, 2024
Pt seen at bedside this am with Dr Peñaloza. Pt offers no complaints at this time, though seems uncomfortable. No events overnight.
Objective Data
-
Vital Signs
Temp Pulse Resp BP Pulse Ox
98.2 F 68 26 110/69 97
09/26/24 07:37 09/26/24 04:00 09/26/24 04:00 09/26/24 04:00 09/25/24 09:50
Intake and Output
09/25/24 09/26/24 09/27/24
06:59 06:59 06:59
Intake Total 955 / 1035 490 / 490
Output Total 1070 / 1220 1800 / 1800
Balance -115 / -185 -1310 / -1310
Intake:
Oral fluids 250 / 250
IV fluids (Total) 955 / 1035 240 / 240
NSS 880 / 960 240 / 240
normosol 75 / 75
Output:
Urine, Quintana 1070 / 1220 300 / 300
Urine, Voided 1500 / 1500
Lab Results
09/26/24 04:27
09/26/24 04:27
Calcium 8.6 mg/dl (8.4-10.2) 09/26/24 04:27
Total Bilirubin 0.2 mg/dl (0.2-1.3) 09/23/24 21:06
AST 28 U/L (17-59) 09/23/24 21:06
ALT 23 U/L (0-50) 09/23/24 21:06
Alkaline Phosphatase 54 U/L (38-126) 09/23/24 21:06
Total Protein 7.3 g/dl (6.3-8.2) 09/23/24 21:06
Albumin 4.6 g/dl (3.5-5.0) 09/23/24 21:06
Physical Exam
-
No apparent distress, resting in bed comfortably
No tachycardia
No dyspnea on room air
ABD flat, nontender, nondistended
Left lower extremity dressing dry and intact, scant to left lower extremity swelling, all compartments soft, no evidence of hematoma, left foot warm, palpable PTand DP pulse confirmed with Doppler signal
--- NOTE | 2024-09-26 08:20 | PTCARENOTE ---
Assumed care of pt at 0715 following shift report. Pt awake and resting quietly in bed. Neuro vascular assessment and wound assessment completed at bedside w/ outgoing shift RN. Physical assessment completed as documented. Pt reports 05/31 Lt LE
discomfort w/ any movement. Pt planning to get OOB to chair early this AM. Oxycodone given per ordered parameters as documented in MAR. Call gan w/in pt reach and safe environment maintained.
[2024-09-26] MEDS: ROXICODONE 5 MG PO ×2 (08:23→14:12)
--- NOTE | 2024-09-26 08:45 | W.PN.INTV ---
Today's Communication / Plan
Recommendations
Continue postoperative care
Increase activity as able
Eventual start anticoagulation per vascular
Smoking cessation encouraged
Hopefully can be transferred to [facility] later today
Is transferred out of the ICU critical care team will sign off
Assessment
-
64-year-old man with past medical history noted. Came with acute left pain. Found to have acute limb ischemia. Taken to the operating room where he underwent SFA to popliteal bypass. Transferred to the critical care unit for further care.
Acute left lower extremity limb ischemia: Status post left lower extremity SFA into below-knee popliteal bypass with greater saphenous vein graft
-
Conditions present prior admission:
Coronary artery disease status post stents in the past
ICD in place
Prior CVA
Essential hypertension
Peripheral vascular disease status post previous iliac stent
TIA in 2008
Hypercholesterolemia
Incarcerated left scrotal hernia status postsurgery
Tobacco abuse
Assessment and plan:
Postoperative day 1
Postoperative surgical intensive care unit monitoring
Supplemental oxygen as needed
Incentive spirometry encouraged.
Aspiration precautions
Chest x-ray 09/24/2024: showed no acute abnormality
-
Incision is intact.
Foot is warm
Continue with: Neuro and vascular checks per protocol
Analgesia with narcotics: Monitor respiratory status closely-pain is controlled.
Vascular surgery following-correspondence and operative notes reviewed
Continue postoperative care
Hemodynamically stable
Continue outpatient medications.
-
Follow hemoglobin-currently stable
Smoking cessation encouraged: Patient quit smoking on Tuesday.
Patient declined nicotine replacement.
Denies shortness of breath
I did discuss with him possibility of lung cancer screening and he is interested. Information will be left in the chart
DVT prophylaxis-heparin subcu-eventually to restart low-dose Xarelto.
Physical therapy today.
Out of bed as tolerated.
-
Likely to be transferred to [facility] later today.
Subjective Dataa
Subjective Data
Date of Service:
Date of Service: September 26, 2024
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
Subjective:
No overnight events
Denies shortness of breath
Left lower extremity pain is controlled
Review of Systems
Cardiopulmonary: Dyspnea (None at rest), Cough (n) and Sputum Production (n)
GI: Abdominal Pain (n)
Objective Data
Data Reviewed
Vital Signs / I&O / Oxygen:
Vital Signs
Temp Pulse Resp BP Pulse Ox
98.2 F 68 26 110/69 97
09/26/24 07:37 09/26/24 04:00 09/26/24 04:00 09/26/24 04:00 09/25/24 09:50
Intake and Output
09/25/24 09/26/24 09/27/24
06:59 06:59 06:59
Intake Total 955 / 1035 490 / 490
Output Total 1070 / 1220 1800 / 1800
Balance -115 / -185 -1310 / -1310
SaO2 97
Nasal Cannula flow liters per 4
minute
Physical Exam
General: Comfortable
HEENT: Normocephalic
Cardiovascular: S1-S2
Respiratory: Clear and Non-Labored Respirations
GI: Soft and Non Distended
Neurology: Awake, Alert and No Motor Deficits
Skin: Other (Left lower extremity incision intact. Foot is warm.)
Labs/Micro/Reports
Lab Data
09/26/24 04:27
09/26/24 04:27
[2024-09-26] MEDS: NICODERM TRANSDERMAL 14 MG TRANSDERM (11:24)
--- NOTE | 2024-09-26 12:00 | PTCARENOTE ---
Pt continues to sit OOB in chair. No new complaints or changes noted. Pt reports desired relief from previously administered Oxycodone. Remains on RA w/ POx 96%. Reported Nicotine craving- TT to Dr Luna and Nicotine patch ordered
--- NOTE | 2024-09-26 13:12 | W.PN.HOSP.TC ---
Today's Communication/Plan
-
DG to telemetry.
Assessment / Plan
Assessment / Plan
Impression:
64 man with left leg pain. He has a history of severe vascular disease, coronary artery disease with 2 stents, as well as peripheral arterial disease with a left iliac stent. He states he was sitting and then when he went to stand up he felt a
severe pain in the left calf. It felt like a cramp but was more severe and felt slightly different.
Ct angiogram shows:
IMPRESSION:
1. There is dilation of the infrarenal abdominal aorta measuring 3.0 cm consistent with aneurysm.
2. 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 There is apparent 2.2 cm outpouching along the left popliteal artery at the level of the knee favored to
represent thrombosed aneurysm.
Seen by vascular surgery and plan for OR.
09/24 s/p aortogram, pelvic angiogram and left lower extremity diagnostic angiogram and left proximal superficial femoral artery to posterior tibial artery bypass with ipsilateral nonreversed greater saphenous vein conduit
Assessment/plan:
Acute limb ischemia:
to OR with vascular surgeon tuesday.
NPO
Heparin gtt in meantime
Pain control as needed
09/25
Status post aortogram , pelvic angiogram and left lower extremity diagnostic angiogram and left proximal superficial femoral artery to posterior tibial artery bypass with ipsilateral nonreversed greater saphenous vein conduit.
Patient tolerated the procedure well.
Stayed overnight in ICU
09/26
DG to tele
Abnormal ECG with h/o CAD
Telemetry overnight
negative troponins
currently everyday Smoking -
patient does not want nicotine replacement
Discussed importance of smoking cessation
09/25
Discussed again the importance of smoking cessation
09/26
Agreed with Nicotine patches.
Reactive leukocytosis-
Resolved
CODE STATUS: Full code
DVT prophylaxis: Heparin
Diet: Cardiac
Disposition: DG to telemetry.
Total time spent on today's encounter was 65 minutes which included time spent in counseling the patient/family regarding diagnosis and treatment plan as listed above, goals of care, and symptom management. Case was discussed with nursing staff,
specialists, and care coordinators/case management. All labs and imaging personally reviewed by me. Remainder the time spent in detailed review of previous records, lab data, imaging, and other medical provider documentation.
Anticipated Discharge: 24 - 48 hours
Subjective/Interval History
-
Date of Service: September 26, 2024
Patient seen and examined at bedside, patient denies any chest pain or shortness of breath, no abdominal pain, no nausea, no vomiting, no diarrhea or constipation.
ok to DG to telemetry.
Objective Data
-
Labs:
Laboratory Results
09/26/24
04:27
WBC 13.1 H
Hgb 12.8 L
Hct 37.6 L
Plt Count 213
Sodium 136
Potassium 4.2
Chloride 109 H
Carbon Dioxide 24
BUN 15
Creatinine 0.8
Glucose 110 H
Calcium 8.6
Vital Signs:
Vital Signs
Temp Pulse Resp BP Pulse Ox
98.5 F 73 13 103/71 98
09/26/24 11:17 09/26/24 10:00 09/26/24 10:00 09/26/24 10:00 09/26/24 08:15
I&O
09/25/24 09/26/24 09/27/24
06:59 06:59 06:59
Intake Total 955 / 1035 490 / 490 240 / 240
Output Total 1070 / 1220 1800 / 1800 600 / 600
Balance -115 / -185 -1310 / -1310 -360 / -360
Physical Exam
-
General: Well Developed, Well Nourished, No Apparent Distress and Comfortable
HEENT: Normocephalic, Atraumatic, Moist Mucous Membranes, No Ptosis, PERRLA and Nose Appears Normal
Respiratory: Clear to Auscultation and Non Labored Respirations
Cardiac: Regular Rhythm and S1/S2
Breast: Deferred by me
GI: Soft, Nontender, Nondistended and Normal Bowel Sounds
Genito-urinary: No Costovertebral Tender
Musculoskeletal: No Clubbing, No Cyanosis, No Edema and Other (Lower extremity dressing intact)
Skin: Warm
Neuro: Awake, Alert, Oriented, AO x 3 and No Motor Deficits
Psych: Calm
Data Reviewed
-
Diagnostic Radiology: Image personally visualized and interpreted and Report Reviewed by me
CT Scan: Image personally visualized and interpreted and Report Reviewed by me
Ultrasound: Image personally visualized and interpreted and Report Reviewed by me
MRI: Image personally visualized and interpreted and Report Reviewed by me
Medical Tests (Nuc Med, Echo etc): Image personally visualized and interpreted and Report Reviewed by me
Labs: Labs Reviewed by me
Old Records: Reviewed
--- NOTE | 2024-09-26 14:27 | CM ---
Addendum entered by Tree Chu 09/26/24 15:39:
Spoke with Physical Therapist after evaluation. Recommendation for home with HH. Spoke with patient. Preference is HH. Referral placed to [facility] for RN, PT/OT.
Original Note:
Xarelto 2.5 mg BID is not covered by patient's insurance. Monthly cos is $350.00.
--- NOTE | 2024-09-26 16:15 | PTCARENOTE ---
Report called to 'Akanksha DAY' on 2N. Pt to transfer to Rm 2135 via with all personal belongings. Pt's brother visiting at bedside. Pt continues to report desired pain relief from administered Oxycodone and states relief that he was able to
participate fully in Physical Therapy. monitoring engineer removed as pt M/S level of care. VS as documented. Dressing to Lt LE unchanged in appearance and DP/PT pulses bilaterally remain intact w/ doppler.
--- NOTE | 2024-09-26 17:30 | PTCARENOTE ---
Patient transferred into room 2134 from ICU, report received from Nasima DAY. Patient x1 assist with RW to chair, VSS, neurovascular checks WNL, +Doppler pedal pulses, LLE Aquacel with marked shadowing. Patient denies pain at this time. Patient oriented
to room and call gan, states no concerns at this time.
[2024-09-26] MEDS: LOPRESSOR 12.5 MG PO (19:48)
[2024-09-26] MEDS: CRESTOR 20 MG PO (21:04)
[2024-09-26] MEDS: COLACE 100 MG PO (21:04)
[2024-09-26] MEDS: ASPIRIN 325 MG PO (21:04)
[2024-09-26] MEDS: ZESTRIL 10 MG PO (21:04)
[2024-09-27] MEDS: TYLENOL 650 MG PO ×2 (05:44→13:59)
[2024-09-27 06:00] VITALS: BMI 25.4
[2024-09-27 07:41] VITALS: BP 94/60
--- NOTE | 2024-09-27 07:43 | W.PN.VS ---
Today's Communication / Plan
-
Seen and assessed with Dr. Peñaloza
Assessment/Plan
-
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 POD #3 aortogram, pelvic angiogram and left lower extremity diagnostic angiogram and left proximal superficial femoral artery to posterior tibial artery bypass with ipsilateral
nonreversed greater saphenous vein conduit.
Plan:
Continue as needed pain medications
Continue aspirin 325
PT/ambulation
Smoking cessation education
Will reassess later today for possible discharge today versus tomorrow
May cover surgical sites with clean dry gauze daily if draining
Subjective Data
-
Date of Service: September 27, 2024
Patient seen at bedside this a.m. with Dr. Peñaloza. Patient offers no complaints at this time. No events overnight. Pain is tolerable.
Objective Data
-
Vital Signs
Temp Pulse Resp BP Pulse Ox
98.4 F 60 17 107/64 97
09/26/24 23:14 09/26/24 23:14 09/26/24 23:14 09/26/24 23:14 09/26/24 23:14
Intake and Output
09/26/24 09/27/24 09/28/24
06:59 06:59 06:59
Intake Total 490 / 490 240 / 240
Output Total 1800 / 1800 980 / 980
Balance -1310 / -1310 -740 / -740
Intake:
Oral fluids 250 / 250 240 / 240
IV fluids (Total) 240 / 240
NSS 240 / 240
Output:
Urine, Quintana 300 / 300
Urine, Voided 1500 / 1500 980 / 980
Other:
Number of approximated SMALL 1
amounts of urine
Number of approximated LARGE 1
amounts of urine
Calcium 8.6 mg/dl (8.4-10.2) 09/26/24 04:27
Total Bilirubin 0.2 mg/dl (0.2-1.3) 09/23/24 21:06
AST 28 U/L (17-59) 09/23/24 21:06
ALT 23 U/L (0-50) 09/23/24 21:06
Alkaline Phosphatase 54 U/L (38-126) 09/23/24 21:06
Total Protein 7.3 g/dl (6.3-8.2) 09/23/24 21:
Albumin 4.6 g/dl (3.5-5.0) 09/23/24 21:06
Physical Exam
-
No apparent distress, resting in bed comfortably
No tachycardia
No dyspnea on room air
ABD flat, nontender, nondistended
Left lower extremity dressing dry and intact, scant to left lower extremity swelling, all compartments soft, no evidence of hematoma, left foot warm
Dressings removed by me at bedside and sites left open to air
palpable PT
[2024-09-27 08:33] LABS: Hematocrit 39.7 % (39.0-52.0); Hemoglobin 13.4 g/dL (13.0-18.0); Mean Corp Hgb Conc. 33.8 g/dL (33.0-37.0); Mean Corpuscular Volume 98.0 fL (80.0-94.0); Platelet Count 233 10^3/uL (130-400); Red Cell Dist. Width 13.2 % (11.5-14.5)
[2024-09-27] MEDS: NICODERM TRANSDERMAL 14 MG TRANSDERM (08:33)
[2024-09-27] MEDS: HEPARIN 5000 UNITS SC (08:34)
[2024-09-27] MEDS: LOPRESSOR PO (08:37)
[2024-09-27 09:05] LABS: Blood Urea Nitrogen 11 mg/dl (9-20); Calcium 9.2 mg/dl (8.4-10.2); Carbon Dioxide 27 mmol/L (22-30); Chloride 105 mmol/L (98-107); Estimated Creatinine Clearance 85 ml/min; Glucose 104 mg/dl (70-99); Potassium 4.4 mmol/L (3.5-5.1); Sodium 138 mmol/L (135-145); eGFR > 60.00
--- NOTE | 2024-09-27 11:06 | W.PN.HOSP.TC ---
Today's Communication/Plan
-
Can be discharged later today or tomorrow am if cleared by vascular surgery
Assessment / Plan
Assessment / Plan
Impression:
64 man with left leg pain. He has a history of severe vascular disease, coronary artery disease with 2 stents, as well as peripheral arterial disease with a left iliac stent. He states he was sitting and then when he went to stand up he felt a
severe pain in the left calf. It felt like a cramp but was more severe and felt slightly different.
Ct angiogram shows:
IMPRESSION:
1. There is dilation of the infrarenal abdominal aorta measuring 3.0 cm consistent with aneurysm.
2. 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 There is apparent 2.2 cm outpouching along the left popliteal artery at the level of the knee favored to
represent thrombosed aneurysm.
Seen by vascular surgery and plan for OR.
09/24 s/p aortogram, pelvic angiogram and left lower extremity diagnostic angiogram and left proximal superficial femoral artery to posterior tibial artery bypass with ipsilateral nonreversed greater saphenous vein conduit
Patient tolerated the procedure very well, initially vascular surgery recommending Xarelto 2.5 mg twice daily but secondary to high co-pay will be discharged on aspirin 325 mg daily.
Assessment/plan:
Acute limb ischemia:
to OR with vascular surgeon tuesday.
NPO
Heparin gtt in meantime
Pain control as needed
09/25
Status post aortogram , pelvic angiogram and left lower extremity diagnostic angiogram and left proximal superficial femoral artery to posterior tibial artery bypass with ipsilateral nonreversed greater saphenous vein conduit.
Patient tolerated the procedure well.
Stayed overnight in ICU
09/26
DG to tele
09/27
Out of bed with physical therapy
Abnormal ECG with h/o CAD
Telemetry overnight
negative troponins
currently everyday Smoking -
patient does not want nicotine replacement
Discussed importance of smoking cessation
09/25
Discussed again the importance of smoking cessation
09/26
Agreed with Nicotine patches.
Reactive leukocytosis-
Resolved
CODE STATUS: Full code
DVT prophylaxis: Heparin
Diet: Cardiac
Disposition: Can be discharged later today or tomorrow am.
Total time spent on today's encounter was 65 minutes which included time spent in counseling the patient/family regarding diagnosis and treatment plan as listed above, goals of care, and symptom management. Case was discussed with nursing staff,
specialists, and care coordinators/case management. All labs and imaging personally reviewed by me. Remainder the time spent in detailed review of previous records, lab data, imaging, and other medical provider documentation.
Anticipated Discharge: Within 24 hours
Subjective/Interval History
-
Date of Service: September 27, 2024
Patient seen and examined at bedside, patient denies any chest pain or shortness of breath, no abdominal pain, no nausea, no vomiting, no diarrhea or constipation.
Out of bed.
Objective Data
-
Labs:
Laboratory Results
09/27/24
08:18
WBC 11.9 H
Hgb 13.4
Hct 39.7
Plt Count 233
Sodium 138
Potassium 4.4
Chloride 105
Carbon Dioxide 27
BUN 11
Creatinine 0.8
Glucose 104 H
Calcium 9.2
Vital Signs:
Vital Signs
Temp Pulse Resp BP Pulse Ox
97.8 F 60 16 94/60 97
09/27/24 07:41 09/27/24 08:37 09/27/24 07:41 09/27/24 08:37 09/27/24 07:41
I&O
09/26/24 09/27/24 09/28/24
06:59 06:59 06:59
Intake Total 490 / 490 240 / 240
Output Total 1800 / 1800 980 / 980
Balance -1310 / -1310 -740 / -740
Physical Exam
-
General: Well Developed, Well Nourished, No Apparent Distress and Comfortable
HEENT: Normocephalic, Atraumatic, Moist Mucous Membranes, No Ptosis, PERRLA and Nose Appears Normal
Respiratory: Clear to Auscultation and Non Labored Respirations
Cardiac: Regular Rhythm and S1/S2
Breast: Deferred by me
GI: Soft, Nontender, Nondistended and Normal Bowel Sounds
Genito-urinary: No Costovertebral Tender
Musculoskeletal: No Clubbing, No Cyanosis, No Edema and Other (Lower extremity surgical site is clean, orion intact)
Skin: Warm
Neuro: Awake, Alert, Oriented, AO x 3 and No Motor Deficits
Psych: Calm
Data Reviewed
-
Diagnostic Radiology: Image personally visualized and interpreted and Report Reviewed by me
CT Scan: Image personally visualized and interpreted and Report Reviewed by me
Ultrasound: Image personally visualized and interpreted and Report Reviewed by me
MRI: Image personally visualized and interpreted and Report Reviewed by me
Medical Tests (Nuc Med, Echo etc): Image personally visualized and interpreted and Report Reviewed by me
Labs: Labs Reviewed by me
Old Records: Reviewed
--- NOTE | 2024-09-27 13:26 | CM ---
Reviewed the chart notes and spoke with the patient at the bedside. IMM reviewed. Patient anticipates discharge to home later today or tomorrow. Family will provide transportation. CM continues to be available to patient/family and is monitoring
medical plan for needs at discharge.
Plan: Discharge to home when medically stable with [facility] services.
--- NOTE | 2024-09-27 16:37 | W.DCSUMMARY ---
Discharge Summary
Discharge Data
Date of Admission: 09/23/24
Date of Discharge: 09/27/24
Total time spent discharging patient (in min): 40
-
Pending Results: No
Hospital Course
Hospital course
64 man with left leg pain. He has a history of severe vascular disease, coronary artery disease with 2 stents, as well as peripheral arterial disease with a left iliac stent. He states he was sitting and then when he went to stand up he felt a
severe pain in the left calf. It felt like a cramp but was more severe and felt slightly different.
Ct angiogram shows:
IMPRESSION:
1. There is dilation of the infrarenal abdominal aorta measuring 3.0 cm consistent with aneurysm.
2. 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 There is apparent 2.2 cm outpouching along the left popliteal artery at the level of the knee favored to
represent thrombosed aneurysm.
Seen by vascular surgery and plan for OR.
09/24 s/p aortogram, pelvic angiogram and left lower extremity diagnostic angiogram and left proximal superficial femoral artery to posterior tibial artery bypass with ipsilateral nonreversed greater saphenous vein conduit
Patient tolerated the procedure very well, initially vascular surgery recommending Xarelto 2.5 mg twice daily but secondary to high co-pay will be discharged on aspirin 325 mg daily.
During hospitalization patient was treated from the following
Acute limb ischemia:
to OR with vascular surgeon tuesday.
NPO
Heparin gtt in meantime
Pain control as needed
09/25
Status post aortogram , pelvic angiogram and left lower extremity diagnostic angiogram and left proximal superficial femoral artery to posterior tibial artery bypass with ipsilateral nonreversed greater saphenous vein conduit.
Patient tolerated the procedure well.
Stayed overnight in ICU
09/26
DG to tele
09/27
Out of bed with physical therapy
Abnormal ECG with h/o CAD
Telemetry overnight
negative troponins
currently everyday Smoking -
patient does not want nicotine replacement
Discussed importance of smoking cessation
09/25
Discussed again the importance of smoking cessation
09/26
Agreed with Nicotine patches.
Reactive leukocytosis-
Resolved
CODE STATUS: Full code
DVT prophylaxis: Heparin
Diet: Cardiac
Disposition: Can be discharged home today.
Total time spent on today's encounter was 40 minutes which included time spent in counseling the patient/family regarding diagnosis and treatment plan as listed above, goals of care, and symptom management. Case was discussed with nursing staff,
specialists, and care coordinators/case management. All labs and imaging personally reviewed by me. Remainder the time spent in detailed review of previous records, lab data, imaging, and other medical provider documentation.
Anticipated Discharge: Today
Discharge Plan
-
Patient Disposition: Home with Home Care
Discharge Diagnosis/Procedures: Left lower extremity arterial bypass with vein graft
Condition: Good
Diet: As tolerated
Activity: No strenuous activity
Driving Restrictions: No driving for 2 weeks
Bathing Restrictions: OK to Shower
Stand Alone Forms: Vascular Surg Discharge Instr
Referrals:
Michael Schofield MD [Family Provider, Family Practice]
Mook Washington MD [Active, Pulmonary Medicine] - in two to four weeks
Referral Note: COPD
Pascale Brenner CRNP [Specified Professional Personl, Vascular Surgery] - 10/11/24 8:30 am
Referral Note: Vascular surgery office follow-up
Prescriptions:
New
aspirin 325 mg Tablet
325 mg PO HS Qty: 100 0RF
Continued
lisinopril 10 mg tablet
10 mg PO HS
rosuvastatin 20 mg tablet
20 mg PO HS
metoprolol tartrate 25 mg tablet
12.5 mg PO BID
Rx Instructions:
resumed
Praluent Pen 75 mg/mL pen injector
75 mg SC Q2W
Discontinued
aspirin 325 MG tablet
325 mg PO HS
Discharge Orders:
Discharge Patient (As Directed); Ordered 09/27/24
Ordered By: Veronica Dimas
Discharge Date and Time
Print Language: CITIZ[place]
--- NOTE | 2024-09-27 16:37 | W.DS.TRANS ---
DC Summary - [employer]
-
Discharge Instructions:
Discharge Diagnosis/Procedures Left lower extremity arterial bypass with vein
graft
Diet As tolerated
Activity No strenuous activity
Driving Restrictions No driving for 2 weeks
Bathing Restrictions OK to Shower
Instructions:
Stand-Alone Forms: Vascular Surg Discharge Instr
Changes to Home Medications: No
Discharge Medications:
DC Medications w/original date entered in mobli
alirocumab 75 mg/mL subcutaneous pen injector (Praluent Pen) 75 mg SC Q2W High Cholesterol 05/21/22
lisinopril 10 mg tablet 10 mg PO HS Blood Pressure 05/21/22
metoprolol tartrate 25 mg tablet 12.5 mg PO BID Blood Pressure 05/21/22
rosuvastatin 20 mg tablet 20 mg PO HS High Cholesterol 05/21/22
aspirin 325 mg tablet 325 mg PO HS #100 tabs 09/26/24
Home Medication Changes
Pending Results: No
[2024-09-27 17:00] VITALS: BP 114/75
[2024-09-27] MEDS: COLACE 100 MG PO (17:55)
[2024-09-27] MEDS: HEPARIN SC (18:12)
== END 2024-09-27 19:04 | disposition home or self-care (01) | DRG 253 ==
LOC: 2 NORTH 23:52
PROVIDERS: Nurse Practitioner; Surgery Vascular Surgery; ADMITTING PHYSICIAN Internal Medicine; ATTENDING PHYSICIAN General Practice; CONSULT PHYSICIAN Internal Medicine Critical Care Medicine; EMERGENCY PHYSICIAN Emergency Medicine; FAMILY PHYSICIAN Family Medicine
PROC: 041L09N Bypass Left Femoral Artery to Posterior Tibial Artery with Autologous Venous Tissue, Open Approach (ICD-10-PCS; 2024-09-24)
PROC: B41D1ZZ Fluoroscopy of Aorta and Bilateral Lower Extremity Arteries using Low Osmolar Contrast (ICD-10-PCS; 2024-09-24)
DX: I70.212 Atherosclerosis of native arteries of extremities with intermittent claudication, left leg (principal); I70.92 Chronic total occlusion of artery of the extremities; I82.432 Acute embolism and thrombosis of left popliteal vein; I70.202 Unspecified atherosclerosis of native arteries of extremities, left leg; I71.40 Abdominal aortic aneurysm, without rupture, unspecified; I72.4 Aneurysm of artery of lower extremity; I25.10 Atherosclerotic heart disease of native coronary artery without angina pectoris; F17.200 Nicotine dependence, unspecified, uncomplicated; I10 Essential (primary) hypertension; D72.829 Elevated white blood cell count, unspecified; E78.00 Pure hypercholesterolemia, unspecified; Z79.899 Other long term (current) drug therapy; Z86.73 Personal history of transient ischemic attack (TIA), and cerebral infarction without residual deficits; Z95.5 Presence of coronary angioplasty implant and graft; Z95.820 Peripheral vascular angioplasty status with implants and grafts
CPT/HCPCS: 35566; 71045; 75625; 75635; 75710; 80048; 80053; 83036; 83605; 84484; 85025; 85027; 85610; 85730; 86850; 86900; 86901; 93005; 93970; 93971; 96374; 96375; 97116; 97163; 99291; 99406; C1769; C1894; Q9967

== ENCOUNTER → 2024-11-26 06:41 | Outpatient (REF) | payer OTHER, SELFPAY | LOC: RAD 06:41 | PROVIDERS: ATTENDING PHYSICIAN Registered Nurse; FAMILY PHYSICIAN Family Medicine | DX: I74.3 Embolism and thrombosis of arteries of the lower extremities (principal); I72.4 Aneurysm of artery of lower extremity; Z95.828 Presence of other vascular implants and grafts | CPT/HCPCS: 93922; 93925 ==

== ENCOUNTER → 2025-01-04 08:40 | Outpatient (REF) | payer OTHER, SELFPAY | LOC: RAD 08:40 | PROVIDERS: ATTENDING PHYSICIAN Internal Medicine Critical Care Medicine; FAMILY PHYSICIAN Family Medicine | DX: Z87.891 Personal history of nicotine dependence (principal) | CPT/HCPCS: 71271 ==

== ENCOUNTER → 2025-01-08 12:00 | Outpatient (REF) | payer OTHER, SELFPAY | LOC: DHSLP 12:00 | PROVIDERS: ATTENDING PHYSICIAN Internal Medicine Critical Care Medicine; FAMILY PHYSICIAN Family Medicine | DX: G47.33 Obstructive sleep apnea (adult) (pediatric) (principal); R09.02 Hypoxemia | CPT/HCPCS: 95800 ==